=== PATIENT | female | born 1985 | race Caucasian/White ===

== ENCOUNTER 2016-06-05 08:47 | Emergency (ER) | payer MEDICAID ==
[~2016-06-05] VITALS: Wt 67.0 kg
[~2016-06-05 08:47] MED LIST: IBUP-1542 PO; IBUP800T25 PO
--- NOTE | 2016-06-05 10:26 | RADRPT ---
PROCEDURE: XR Chest PA CLINICAL INDICATION: Chest pain, cough TECHNIQUE: An PA radiograph of the chest was submitted. COMPARISON: None. FINDINGS: Cardiovascular: The cardiovascular silhouette appears unremarkable. Lung Ochoa: The lung ochoa appear clear with no nodule, alveolar infiltrate, or interstitial promi nence evident. Pleural Spaces: There is no pneumothorax or pleural fluid accumulation evident. Osseous Structures: The osseous structures appear intact. Soft Tissues: The soft tissues appear unremarkable. IMPRESSION: Unremarkable PA chest. Physician Long Date Time Electronically viewed and signed by Grayson Palacio Physician on 06/05/2016 10:25 /
[2016-06-05] MEDS ORDERED: IBUP-1542 PO (10:36)
--- NOTE | 2016-06-05 10:45 | ERD ---
ER Documentation Chief Complaint Date/Time DATE: 06/05/16 TIME: 10:40 Chief Complaint ON AND OFF CHEST WALL PAIN X5 DAYS, NO SOB HPI This is a 30-year-old female that presents to the ER with chest wall pain for the last month. She states that over the last 5 days it has been worse. Chest pain radiates down her right arm. Pain has been constant and nothing makes it better or worse. She took aspirin yesterday for the pain and it helps. She denies any shortness of breath. Her chest pain is not exertional. She denies any fevers or chills patient denies any trauma. She denies any leg pain or leg swelling. She denies any recent travel. ROS 12 point review of systems was done, all negative except per HPI. Medications Home Meds Active Scripts Ibuprofen* (Motrin*) 600 Mg Tab, 600 MG PO Q6, #30 TAB Prov:ANNA MARIE SERNA 06/05/16 Ibuprofen* (Motrin*) 600 Mg Tab, 600 MG PO Q6, #30 TAB Prov:ANNA MARIE SERNA 01/24/16 Ibuprofen* (Ibuprofen*) 800 Mg Tablet, 800 MG PO Q8, #20 TAB 0 Refills Prov:DORITA DELA CRUZ MD 01/13/16 Allergies Allergies: Coded Allergies: No Known Allergy (Verified , 12/16/13) PMhx/Soc History of Surgery: No Anesthesia Reaction: No Hx Neurological Disorder: No Hx Respiratory Disorders: No Hx Cardiac Disorders: No Hx Psychiatric Problems: No Hx Miscellaneous Medical Probl: No Hx Alcohol Use: No Hx Substance Use: No Hx Tobacco Use: No Smoking Status: Never smoker Physical Exam Vitals Vital Signs Date Time Temp Pulse Resp B/P Pulse Ox O2 Delivery O2 Flow Rate FiO2 06/05/16 08:50 97.4 68 17 114/61 96 Physical Exam GENERAL: The patient is well developed and appropriate for usual state of health , in no apparent distress. HEENT: Atraumatic. Conjunctivae are pink. Pupils equal, round, and reactive to light. Extraocular muscles are grossly intact. Bilateral tympanic membranes are clear with no evidence of erythema, effusion or dulling of the light reflex. The oropharynx is clear with no erythema or exudates. NECK: C-spine is soft and supple. There is no cervical lymphadenopathy. CHEST: Clear to auscultation bilaterally. There are no rales, wheezes or rhonchi. HEART: Regular rate and rhythm. No murmurs, clicks, rubs or gallops. ABDOMEN: Soft, nontender and nondistended. Good bowel sounds. No rebound or guarding. No gross peritonitis. No gross organomegaly or masses. No Shelton sign or McBurney point tenderness. No pulsatile masses. BACK: No midline or flank tenderness. EXTREMITIES: Equal pulses bilaterally. There is no peripheral clubbing, cyanosis or edema. No focal swelling or erythema. Full range of motion. Grossly neurovascularly intact. NEURO: Alert and oriented. Cranial nerves II through XII are intact. Motor strength in all 4 extremities with 5/5 strength. Sensation grossly intact. Normal speech and gait. SKIN: There is no apparent rash or petechia. The skin is warm and dry. Procedures/MDM Differential diagnosis includes but is not limited to; STEMI, dissection, pneumothorax, PE, esophageal rupture, tamponade, pneumonia, pericarditis, GERD, musculoskeletal, endocarditis, anxiety. This is a 30-year-old female that presents to the ER with chest wall pain for the last month. At this time do not believe patient is having an acute AK. Her EKG was read by Dr. Tsai [address] elevation or T-wave inversion. Suspicion for pulmonary embolism is low, patient does not have any PERC criteria. Patient will be sent home with ibuprofen. She is to follow-up with her primary care doctor within 1-2 days return to ER sooner if symptoms worsen. My medical decision making was shared with the patient she understands and agrees with plan. Departure Diagnosis: Primary Impression: Chest wall pain Condition: Stable Patient Instructions: Chest Wall Pain, Costochondritis Additional Instructions: Call your primary care doctor TOMORROW for an appointment during the next 1-2 days.See the doctor sooner or return here if your condition worsens before your appointment time. ANNA MARIE SERNA Jun 05, 2016 10:45
== END 2016-06-05 11:20 | disposition home or self-care (01) ==
LOC: FTE 08:47
DX: R07.89 Other chest pain (principal)
CPT/HCPCS: 71010; Z7502; 93005

== ENCOUNTER 2018-11-17 06:41 | Emergency (ER) | payer MEDICAID ==
[~2018-11-17] VITALS: Wt 78.2 kg
[~2018-11-17 06:41] MED LIST changes: +FAMO-96 PO; +IBUP-1544 PO; -IBUP800T25 PO
[2018-11-17 06:43] VITALS: BP 113/64; PULSE 61; RESP 18
[2018-11-17] MEDS ORDERED: LIDOCAINE/MYLANTA 40 ML BTL PO STA (07:13)
[2018-11-17] MEDS ORDERED: FAMOTIDINE 20 MG TAB PO STA (07:13)
== END 2018-11-17 08:14 | disposition home or self-care (01) ==
LOC: FTE 06:41
DX: R10.84 Generalized abdominal pain (principal)
CPT/HCPCS: 74019; 81001; 81025; Z7502; Z7610